=== PATIENT | male | born 1960 | race Two or more races ===

== ENCOUNTER 2017-09-26 21:27 | Inpatient (IN) | payer OTHER ==
[~2017-09-26] VITALS: Ht 167.6 cm; Wt 60.6 kg
[~2017-09-26 21:27] MED LIST: ACET325T33 PO; BEN25 PO; FURO20TA3 PO; POTA8CAP PO; SODI1TAB2 PO; TRIA15CR55 TOP
[2017-09-27 01:00] VITALS: Ht 167.6 cm; Wt 60.6 kg
[2017-09-27 01:23] VITALS: BP 121/71; RESP 18
[2017-09-27] MEDS ORDERED: BISACODYL (EC) 5 MG TAB PO PRN (02:00)
[2017-09-27] MEDS ORDERED: NACL 0.9% 3 ML SYG IV SCH (02:00)
[2017-09-27] MEDS ORDERED: ACETAMINOPHEN 325 MG TAB PO PRN (02:00)
[2017-09-27] MEDS ORDERED: ONDANSETRON 4 MG TAB PO PRN (02:00)
[2017-09-27] MEDS ORDERED: DOCUSATE SODIUM 100 MG CAP PO PRN (02:00)
[2017-09-27] MEDS: HYDROCODONE/APAP (5/325) TAB PO PRN ×3 (03:18→20:22)
[2017-09-27 05:54] LABS: BASOPHILS % 0.4 % (0.0-2.0); EOSINOPHILS % 0.3 % (0.0-7.0); HEMATOCRIT 31.9 % (42.0-52.0); HEMOGLOBIN 10.7 g/dl (14.0-18.0); LYMPHOCYTES # 1.3 10^3/ul (0.8-2.9); LYMPHOCYTES % 16.9 % (15.0-51.0); MEAN CORPUSCULAR HEMOGLOBIN 27.6 pg (29.0-33.0); MEAN CORPUSCULAR HGB CONC 33.5 g/dl (32.0-37.0); MEAN CORPUSCULAR VOLUME 82.4 fl (82.0-101.0); MEAN PLATELET VOLUME 9.2 fl (7.4-10.4); MONOCYTE # 1.1 10^3/ul (0.3-0.9); MONOCYTES % 14.8 % (0.0-11.0); NEUTROPHIL # 5.2 10^3/ul (1.6-7.5); NEUTROPHILS % 67.2 % (39.0-77.0); PLATELET COUNT 245 10^3/UL (140-415); RED BLOOD COUNT 3.87 10^6/ul (4.70-6.10); RED CELL DISTRIBUTION WIDTH 13.3 % (11.5-14.5); WHITE BLOOD COUNT 7.7 10^3/ul (4.8-10.8)
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
--- NOTE | 2017-09-27 07:02 | RADRPT ---
PROCEDURE: US Lower extremity Venous. CLINICAL INDICATION: Right leg edema , pain TECHNIQUE: Multiple sonographic images of the right lower extremity deep venous system was obtaine d utilizing grayscale, color-flow, compressive sonography and doppler imaging with augmentation. Th e images were reviewed on a PACS workstation. COMPARISON: None. FINDINGS: There is normal compressibility and flow within the right common femoral, femoral, posterior tibial, peroneal and popliteal veins. RPTAT: AA IMPRESSION: No sonographic evidence for deep venous thrombosis. .Lupillo Joy MD, MD Date Time Electronically viewed and signed by .Lupillo Joy MD, on 09/27/2017 07:01 .S/
[2017-09-27 07:12] LABS: ALBUMIN 4.2 g/dl (3.3-4.9); ALBUMIN/GLOBULIN RATIO 1.13; BILIRUBIN,INDIRECT 1.3 mg/dl (0-1.1); BILIRUBIN,TOTAL 1.3 mg/dl (0.2-1.3); CALCIUM 9.7 mg/dl (8.4-10.2); CREATININE 0.79 mg/dl (0.61-1.24); POTASSIUM 3.5 mmol/L (3.5-5.1); TOTAL PROTEIN 7.9 g/dl (6.1-8.1)
[2017-09-27 07:23] LABS: CHOL/HDL RATIO 1.4 RATIO
[2017-09-27 07:50] VITALS: BP 118/73; RESP 16
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
--- NOTE | 2017-09-27 11:58 | RADRPT ---
PROCEDURE: XR knee CLINICAL INDICATION: Patella fracture TECHNIQUE: Three views of the right knee COMPARISON: None available FINDINGS: There is a mid patella fracture lines of uncertain age. Short curvilinear lucency in the medial femo ral condyle periphery. Anterior patella small enthesiophyte. Atherosclerotic vascular calcifications. IMPRESSION: 1. Patella fracture of uncertain age. 2. Medial femoral condyle peripheral short curvilinear lucency could be artifactual, though fractur e line is also in the differential diagnosis. Compare to prior corresponding imaging studies. RPTAT: TT Physician Deepti Date Time Electronically viewed and signed by Physician Deepti on 09/27/2017 11:58 JS/
[2017-09-27 12:12] LABS: ALBUMIN 4.5 g/dl (3.3-4.9); CALCIUM 9.4 mg/dl (8.4-10.2); CREATININE 0.79 mg/dl (0.61-1.24); PHOSPHORUS 4.1 mg/dl (2.5-4.9); POTASSIUM 3.5 mmol/L (3.5-5.1)
[2017-09-27 13:16] LABS: ADD UMIC NO; UR ASCORBIC ACID NEGATIVE (NEGATIVE); UR BILIRUBIN (Dip) NEGATIVE (NEGATIVE); UR BLOOD (Dip) NEGATIVE (NEGATIVE); UR CLARITY CLEAR (CLEAR); UR COLOR AMBER (YELLOW); UR GLUCOSE (Dip) NEGATIVE (NEGATIVE); UR KETONES (Dip) 1+ mg/dL (NEGATIVE); UR LEUKOCYTE ESTERASE (Dip) NEGATIVE Leu/ul (NEGATIVE); UR NITRITE (Dip) NEGATIVE (NEGATIVE); UR TOTAL PROTEIN (Dip) NEGATIVE (NEGATIVE); UR UROBILINOGEN (Dip) 2+ mg/dL (NEGATIVE)
[2017-09-27 14:28] VITALS: BP 113/70; RESP 18
--- NOTE | 2017-09-27 15:20 | PN ---
Date/Time of Note Date/Time of Note DATE: 09/27/17 TIME: 15:17 Assessment/Plan VTE Prophylaxis VTE Prophylaxis Intervention: SCD's Lines/Catheters IV C[facility]ter Type (from [facility] Saline Lock Urinary Cath still in place: No Assessment/Plan Chief Complaint/Hosp Course Subjective: Moderate pain. No dyspnea fever chest pain or dyspnea Objective: Vital signs stable Physical exam No pallor adenopathy Regular Clear Benign Ext: rt knee edema noted. Dimin rom right knee. Assessment/plan 1. Right knee patellar fracture. Stable consult ortho. May need pt/ DME tomorrow. -If surgery is needed. Low periop risk. May proceed forward from medical standpoint. 2. Anemia 3. Subclinical hypothyroidism Problems: Exam/Review of Systems Vital Signs Vitals Vital Signs Date Time Temp Pulse Resp B/P Pulse Ox O2 Delivery O2 Flow Rate FiO2 09/27/17 14:28 98.2 84 18 113/70 98 Intake and Output 09/26/17 09/26/17 09/27/17 15:00 23:00 07:00 Intake Total 550 ml Output Total 350 ml Balance 200 ml Results Result Diagram: 09/27/17 0448 09/27/17 1116 Results 24 hrs Laboratory Tests Test 09/27/17 04:48 09/27/17 11:16 09/27/17 12:30 White Blood Count 7.7 Red Blood Count 3.87 L Hemoglobin 10.7 L Hematocrit 31.9 L Mean Corpuscular Volume 82.4 Mean Corpuscular Hemoglobin 27.6 L Mean Corpuscular Hemoglobin Concent 33.5 Red Cell Distribution Width 13.3 Platelet Count 245 Mean Platelet Volume 9.2 Neutrophils % 67.2 Lymphocytes % 16.9 Monocytes % 14.8 H Eosinophils % 0.3 Basophils % 0.4 Nucleated Red Blood Cells % 0.0 Neutrophils # 5.2 Lymphocytes # 1.3 Monocytes # 1.1 H Eosinophils # 0.0 Basophils # 0.0 Nucleated Red Blood Cells # 0.0 Sodium Level 130 L 128 L Potassium Level 3.5 3.5 Chloride Level 93 L 92 L Carbon Dioxide Level 23 24 Anion Gap 18 H 16 Blood Urea Nitrogen 20 24 H Creatinine 0.79 0.79 Glucose Level 80 95 Hemoglobin A1c 4.7 Osmolality 263 L Calcium Level 9.7 9.4 Magnesium Level 1.7 Total Bilirubin 1.3 Direct Bilirubin 0.00 Indirect Bilirubin 1.3 H Aspartate Amino Transf (AST/SGOT) 66 H Alanine Aminotransferase (ALT/SGPT) 50 Alkaline Phosphatase 88 Total Protein 7.9 Albumin 4.2 4.5 Globulin 3.70 H Albumin/Globulin Ratio 1.13 Triglycerides Level 62 Cholesterol Level 211 H LDL Cholesterol, Calculated 50 HDL Cholesterol 149 H Cholesterol/HDL Ratio 1.4 Thyroid Stimulating Hormone (TSH) 6.570 H Uric Acid 5.8 Phosphorus Level 4.1 Urine Color FANNY Urine Clarity CLEAR Urine pH 5.0 Urine Specific Mcfarland 1.020 Urine Ketones 1+ H Urine Nitrite NEGATIVE Urine Bilirubin NEGATIVE Urine Urobilinogen 2+ H Urine Leukocyte Esterase NEGATIVE Urine Hemoglobin NEGATIVE Urine Osmolality 647 Urine Random Creatinine 191.98 Urine Random Sodium 13 L Urine Glucose NEGATIVE Urine Total Protein 17.0 H Medications Medications Current Medications Ondansetron HCl (Zofran Tab) 4 mg Q6H PRN PO NAUSEA AND/OR VOMITING; Start at 02:00 Acetaminophen (Tylenol Tab) 650 mg Q6H PRN PO PAIN LEVEL 1-3 OR FEVER; Start 09/27/17 at 02:00 Acetaminophen/ Hydrocodone Bitart (Salmon (5/325)) 1 tab Q6H PRN PO MODERATE PAIN LEVEL 4-6 Last administered on 09/27/17t 13:56; Admin Dose 1 TAB; Start 09/27/17 at 02:00 Docusate Sodium (Colace) 100 mg Q12H PRN PO CONSTIPATION; Start 09/27/17 at 02 :00 Bisacodyl (Dulcolax) 5 mg DAILY PRN PO CONSTIPATION; Start 09/27/17 at 02:00 Morphine Sulfate (morphine) 2 mg Q2H PRN IV PAIN LEVEL 7-10; Start 09/27/17 at 15:30 DEEPIKA FREY MD Sep 27, 2017 15:20
--- NOTE | 2017-09-27 17:54 | RADRPT ---
PROCEDURE: XR portable chest CLINICAL INDICATION: Preoperative chest radiograph TECHNIQUE: Portable semi upright chest radiograph COMPARISON: None available FINDINGS: Overlying finger images obscure portions of the bilateral proximal humeri. The cardiac silhouette is within normal limits. Atherosclerotic changes of the thoracic aorta. The m ediastinum and pulmonary smooth are otherwise unremarkable. The lung vasculature and parenchyma are unremarkable. The visualized pleural surfaces are unremarkab le. Spondylosis of the visualized spine. IMPRESSION: 1. Thoracic aorta atherosclerotic mural calcifications. Compare to prior corresponding imaging studies. RPTAT: TT Physician Deepti Date Time Electronically viewed and signed by Physician Deepti on 09/27/2017 17:54 JS/
[2017-09-27 20:41] VITALS: BP 116/71; RESP 18
[2017-09-27] MEDS: morphine 2 MG INJ IV PRN (23:37)
[2017-09-28 02:44] VITALS: BP 109/62; RESP 20
[2017-09-28] MEDS: HYDROCODONE/APAP (5/325) TAB PO PRN (02:57)
[2017-09-28 05:58] LABS: BASOPHIL # 0.1 10^3/ul (0.0-0.1); BASOPHILS % 0.8 % (0.0-2.0); EOSINOPHILS % 0.6 % (0.0-7.0); HEMATOCRIT 31.2 % (42.0-52.0); HEMOGLOBIN 10.4 g/dl (14.0-18.0); LYMPHOCYTES # 1.1 10^3/ul (0.8-2.9); LYMPHOCYTES % 17.4 % (15.0-51.0); MEAN CORPUSCULAR HEMOGLOBIN 27.7 pg (29.0-33.0); MEAN CORPUSCULAR HGB CONC 33.3 g/dl (32.0-37.0); MEAN PLATELET VOLUME 8.9 fl (7.4-10.4); MONOCYTES % 15.4 % (0.0-11.0); NEUTROPHIL # 4.3 10^3/ul (1.6-7.5); NEUTROPHILS % 65.5 % (39.0-77.0); PLATELET COUNT 257 10^3/UL (140-415); RED BLOOD COUNT 3.76 10^6/ul (4.70-6.10); RED CELL DISTRIBUTION WIDTH 13.2 % (11.5-14.5); WHITE BLOOD COUNT 6.5 10^3/ul (4.8-10.8)
[2017-09-28 06:42] LABS: ALBUMIN 4.4 g/dl (3.3-4.9); ALBUMIN/GLOBULIN RATIO 1.29; BILIRUBIN,INDIRECT 1.1 mg/dl (0-1.1); BILIRUBIN,TOTAL 1.1 mg/dl (0.2-1.3); CALCIUM 9.4 mg/dl (8.4-10.2); CREATININE 0.64 mg/dl (0.61-1.24); POTASSIUM 3.1 mmol/L (3.5-5.1); TOTAL PROTEIN 7.8 g/dl (6.1-8.1)
[2017-09-28] MEDS: morphine 2 MG INJ IV PRN (07:00)
[2017-09-28 07:35] LABS: TRIIODOTHYRONINE 1.1 ng/ml (0.97-1.69)
[2017-09-28 07:45] VITALS: BP 163/80; RESP 22
[2017-09-28 07:48] LABS: PHOSPHORUS 4.1 mg/dl (2.5-4.9)
[2017-09-28] MEDS ORDERED: POTASSIUM CHLORIDE (SR) 20 MEQ TAB PO STA (08:26)
--- NOTE | 2017-09-28 09:05 | PN ---
DATE: 09/28/2017 SUBJECTIVE: The patient is stable. No events overnight. No fevers, chills, nausea, vomiting. OBJECTIVE: VITAL SIGNS: Blood pressure is 163/80, temperature 98.4, pulse 86, respirations 22. HEENT: Head is normocephalic. NECK: Supple. HEART: Regular rate. LUNGS: Show diminished breath sounds at the base. ABDOMEN: Soft, nontender to palpation without rebound or guarding. EXTREMITIES: Negative for clubbing, cyanosis, no edema. DERMATOLOGIC: No rashes. MUSCULOSKELETAL: No joint effusions. NEUROLOGIC: No change in exam. MEDICATIONS: The patient's medications have been reviewed. LABORATORY DATA: Shows sodium 131, potassium 3.1, chloride 93, BUN 15, creatinine 0.64. White coun t 6.5, hemoglobin 10.4, hematocrit 31.2, platelet count 257. The patient's urinalysis shows a FENa of less than 1%. ASSESSMENT AND PLAN: 1. Hyponatremia, etiology may be secondary to volume depletion. The patient had a FENa of less liz n 1%. Additionally, hypokalemia is a contributing factor. Would recommend to encourage oral intake . We will replete potassium chloride. If sodium levels are not improved would give her a course of IV fluids. We will lift the patient's free water restriction. 2. Hypokalemia, replete potassium chloride. 3. Right patella fracture. The patient is being followed by orthopedics. Continue pain control. 4. Depression, currently not on any medication. Continue to monitor. 5. General debility. 6. Anemia. Monitor hemoglobin and hematocrit levels. Dictated By: SHANAE GATICA/JORGE Conf#: [id number] DID#: [id number]
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
[2017-09-29 14:52] LABS: MICROALBUMIN 4.3 mg/dL
== END 2017-09-28 09:30 | disposition left against medical advice (07) | DRG 563 ==
LOC: PP2 09-27 00:51 → MERGE 09-27 00:51
PROVIDERS: ADMIT Internal Medicine; ATTEND Internal Medicine
DX: S82.091A Other fracture of right patella, initial encounter for closed fracture (principal); E87.1 Hypo-osmolality and hyponatremia; W22.8XXA Striking against or struck by other objects, initial encounter; M79.89 Other specified soft tissue disorders; F32.9 Major depressive disorder, single episode, unspecified; D64.9 Anemia, unspecified; E03.8 Other specified hypothyroidism
CPT/HCPCS: 71010; 73564; 80053; 80061; 80069; 81003; 82043; 82306; 83036; 83735; 83930; 83935; 84100; 84155; 84300; 84439; 84443; 84480; 84560; 85025; 93005; 93971; J2270

== ENCOUNTER → 2017-10-07 | Outpatient (CLI) | payer OTHER ==
--- NOTE | 2017-10-07 23:22 | RADRPT ---
PROCEDURE: Right knee radiographs. CLINICAL INDICATION: Right knee pain. TECHNIQUE: 2 views. Cross-table lateral and patellar view. COMPARISON: No prior studies are available for comparison. FINDINGS: There is a recent transverse fracture of the patella with anterior displacement of the distal fragme nt with a resultant step-off of the articular surface measuring 2.5 mm. There is no other fracture a nd there is no dislocation. There is a moderate joint effusion. Vascular calcifications are present consistent with atherosclerosis. There is no lytic or blastic lesion. The articular surfaces are otherwise intact. IMPRESSION: 1. Recent transverse fracture of the patella with anterior displacement and step-off of the articul ar surface measuring 2.5 mm. 2. Moderate joint effusion. 3. Atherosclerosis. 4. Otherwise unremarkable images of the right knee. RPTAT: QQ .Eagle Martino MD, Date Time Electronically viewed and signed by .Eagle Martino MD, on 10/07/2017 23:21 .R/
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
== END | disposition home or self-care (01) ==
LOC: HKI 14:24
PROVIDERS: ATTEND Orthopaedic Surgery Adult Reconstructive Orthopaedic Surgery
DX: S82.001D Unspecified fracture of right patella, subsequent encounter for closed fracture with routine healing (principal); V78 Bus occupant injured in noncollision transport accident
CPT/HCPCS: G0463

== ENCOUNTER → 2017-10-18 | Outpatient (CLI) | payer OTHER ==
--- NOTE | 2017-10-18 17:52 | RADRPT ---
PROCEDURE: XR RIGHT KNEE. CLINICAL INDICATION: Right knee pain TECHNIQUE: 2 views of the right knee are available for review. COMPARISON: 10/07/2017 FINDINGS: Since the prior examination there has been no significant change in the appearance of the transverse mid patellar fracture. There is some trabecular bridging but there is persistence of fracture line raising the question of a partial nonunion. There has been a decrease in the size of joint effusion. The bones are osteopenic. No evidence for femoral, tibial or fibular fracture. IMPRESSION: 1. Decrease in size of knee joint effusion. 2. Little overall change in the appearance of the patellar fracture with some trabecular bridging a nd persistence of fracture line raising the question of at least partial nonunion. Consider CT for f urther evaluation if clinically indicated. RPTAT: XX .Chriss Harding MD, MD Date Time Electronically viewed and signed by .Chriss Harding MD, MD on 10/18/2017 17:52 .T/
--- NOTE | 2017-10-19 05:23 | HKNOTE ---
DATE OF SERVICE: 10/18/2017 CHIEF COMPLAINT: Right knee pain. HISTORY OF PRESENT ILLNESS: This is a 57-year-old male who struck his knee while boarding a [employer] bu s 2 weeks ago. He has been using a knee immobilizer. According to Mr. Howell, he has not been compl iant with his knee immobilizer use and instructions provided to him at the last visit. He has been weightbearing as tolerated in extension. He is taking ibuprofen for pain control. He does not have any other complaints. RIGHT KNEE EXAMINATION: No open wounds, no deformity, 5/5 function of knee extensors. X-RAYS RIGHT KNEE: 2 views of the right knee taken today demonstrate a minimally displaced fracture of the right patella shaft. There is articular step-off. X-rays have not changed in comparison to previous x-rays. IMPRESSION: A 57-year-old male with a right knee patellar fracture. PLAN: I again discussed x-ray findings with the patient. I spoke to him regarding operative versus nonoperative treatment options. Mr. Howell does not wish to proceed with surgery. I explained to h im that he may have a nonunion, malunion, extensor lag, osteoarthritis, need for surgery in the futu re. He understood all the risks. He would like to proceed with nonoperative options. He was instr ucted to weightbear as tolerated in extension. We will request for his insurance to approve a knee hinged range of motion brace. He will follow up in 4 weeks. I discussed with him the possibility o f stiffness and need for physical therapy in the future. Dictated By: [place] YBARRA/JORGE Conf#: [id number] DID#: [id number]
== END | disposition home or self-care (01) ==
LOC: HKI 09:39
PROVIDERS: ATTEND Orthopaedic Surgery Adult Reconstructive Orthopaedic Surgery
DX: S82.001D Unspecified fracture of right patella, subsequent encounter for closed fracture with routine healing (principal); X58.XXXD Exposure to other specified factors, subsequent encounter
CPT/HCPCS: 73560; Z7500; G0463

== ENCOUNTER → 2017-12-13 | Outpatient (CLI) | END | disposition home or self-care (01) ==

== ENCOUNTER → 2018-02-25 | Outpatient (CLI) | END | disposition home or self-care (01) ==

== ENCOUNTER 2018-06-03 14:12 | Outpatient (CLI) | END 2018-06-03 16:06 | disposition home or self-care (01) ==